=== PATIENT | male | born 1975 | race Caucasian/White ===

== ENCOUNTER 2016-10-10 18:21 | Emergency (ER) | payer MEDICAID ==
[~2016-10-10] VITALS: Ht 180.3 cm; Wt 80.0 kg
[~2016-10-10 18:21] MED LIST: AMOX1TAB61 PO; IPRA12.9 INH; NICO1PAT5 TD; TRAM50TA2 PO
[2016-10-10 18:29] VITALS: BP 137/73
[2016-10-10] MEDS ORDERED: CEFTRIAXONE 1,000 MG IM ONE (18:30)
[2016-10-10] MEDS ORDERED: SULFAMETH./TRIMETHOPRIM DS 800MG/160MG TABLET PO ONE (18:30)
[2016-10-10] MEDS ORDERED: KETOROLAC 30 MG/1 ML ONE (18:35)
[2016-10-10] MEDS ORDERED: CEFTRIAXONE 1,000 MG ONE (18:36)
[2016-10-10] MEDS ORDERED: LIDOCAINE 1%, 20ML ONE (18:36)
[2016-10-10] MEDS ORDERED: SULFAMETH./TRIMETHOPRIM DS 800MG/160MG TABLET ONE (18:36)
[2016-10-10] MEDS ORDERED: PLEASE ENTER HEIGHT AND WEIGHT MC SCH (19:00)
[2016-10-10] MEDS ORDERED: KETOROLAC 30 MG/1 ML IM ONE (19:00)
== END 2016-10-10 19:43 | disposition home or self-care (01) ==
LOC: ED 19:15
DX: K13.0 Diseases of lips (principal); E11.9 Type 2 diabetes mellitus without complications; J44.9 Chronic obstructive pulmonary disease, unspecified; F17.200 Nicotine dependence, unspecified, uncomplicated
CPT/HCPCS: 96372; 99284; J0696; J1885

== ENCOUNTER 2016-11-18 12:53 | Emergency (ER) | payer MEDICAID ==
[~2016-11-18] VITALS: Ht 180.3 cm; Wt 77.1 kg
[~2016-11-18 12:53] MED LIST changes: +AMOX1TAB64 PO; +LACT1CAP15 PO
[2016-11-18 12:54] VITALS: BP 130/76
== END 2016-11-18 16:20 | disposition home or self-care (01) ==
LOC: ED 14:05
DX: N49.2 Inflammatory disorders of scrotum (principal); E11.9 Type 2 diabetes mellitus without complications; J44.9 Chronic obstructive pulmonary disease, unspecified; F12.10 Cannabis abuse, uncomplicated
CPT/HCPCS: 76870; 81003; 99285

== ENCOUNTER 2016-12-06 22:20 | Emergency (ER) | payer MEDICAID ==
[2016-12-06] MEDS ORDERED: HYDROcodone/APAP 5/325 TABLET PO ONE (22:26)
[2016-12-06] MEDS ORDERED: HYDROcodone/APAP 5/325 TABLET ONE (22:29)
[2016-12-06] MEDS ORDERED: PLEASE ENTER HEIGHT AND WEIGHT MC SCH (23:00)
[2016-12-06 23:22] VITALS: BP 136/85
== END 2016-12-06 23:26 | disposition home or self-care (01) ==
LOC: ED 22:39
DX: S39.012A Strain of muscle, fascia and tendon of lower back, initial encounter (principal); E11.9 Type 2 diabetes mellitus without complications; J44.9 Chronic obstructive pulmonary disease, unspecified; F17.210 Nicotine dependence, cigarettes, uncomplicated; F15.10 Other stimulant abuse, uncomplicated; F12.10 Cannabis abuse, uncomplicated; X58.XXXA Exposure to other specified factors, initial encounter; Y93.89 Activity, other specified; Y99.8 Other external cause status; Y92.89 Other specified places as the place of occurrence of the external cause
CPT/HCPCS: 72110; 99284

== ENCOUNTER 2016-12-21 15:53 | Emergency (ER) | payer MEDICAID ==
[~2016-12-21] VITALS: Ht 180.3 cm; Wt 72.7 kg
[~2016-12-21 15:53] MED LIST changes: +NICO1PAT16 TD; -NICO1PAT5 TD
[2016-12-21 17:33] LABS: HEMATOCRIT 44.3 % (39.2-51.8); HEMOGLOBIN 14.5 g/dL (13.7-18.0); WHITE BLOOD COUNT 14.8 x10^3/uL (3.4-10)
[2016-12-21 17:41] LABS: BLOOD UREA NITROGEN 11 mg/dL (7-18)
[2016-12-21] MEDS ORDERED: LIDOCAINE 1%, 20ML ONE (19:50)
[2016-12-21] MEDS ORDERED: LIDOCAINE 1%, 20ML SQ ONE (20:00)
[2016-12-21 20:23] VITALS: BP 125/86
== END 2016-12-21 20:43 | disposition home or self-care (01) ==
LOC: ED 20:00
DX: L02.31 Cutaneous abscess of buttock (principal); E11.9 Type 2 diabetes mellitus without complications; J44.9 Chronic obstructive pulmonary disease, unspecified; Z91.030 Bee allergy status
CPT/HCPCS: 10060; 36415; 80048; 82040; 85025

== ENCOUNTER 2017-01-26 19:45 | Emergency (ER) | payer MEDICAID ==
[~2017-01-26] VITALS: Ht 180.3 cm; Wt 80.0 kg
[~2017-01-26 19:45] MED LIST changes: +NICO-487 TD; -NICO1PAT16 TD
[2017-01-26] MEDS ORDERED: DIPH,PERTUSS(ACELL),TET VAC/PF 0.5 ML IM-VACC ONE ×2 (20:00→20:07)
[2017-01-26] MEDS ORDERED: LIDOCAINE 1%, 20ML SQ ONE (20:00)
[2017-01-26] MEDS ORDERED: LIDOCAINE 1%, 20ML ONE (20:07)
[2017-01-26] MEDS ORDERED: HYDROcodone/APAP 5/325 TABLET ONE (20:21)
[2017-01-26] MEDS ORDERED: HYDROcodone/APAP 5/325 TABLET PO ONE (20:30)
[2017-01-26] MEDS ORDERED: SULFAMETH./TRIMETHOPRIM DS 800MG/160MG TABLET PO ONE (21:00)
[2017-01-26] MEDS ORDERED: SULFAMETH./TRIMETHOPRIM DS 800MG/160MG TABLET ONE (21:18)
[2017-01-26 21:43] VITALS: BP 137/84
== END 2017-01-26 21:45 | disposition home or self-care (01) ==
LOC: ED 20:45
DX: L02.214 Cutaneous abscess of groin (principal)
CPT/HCPCS: 46050; 90471; 90715

== ENCOUNTER 2017-01-28 21:48 | Inpatient (IN) | payer MEDICAID ==
[~2017-01-28] VITALS: Ht 180.3 cm; Wt 76.6 kg
[2017-01-28] MEDS ORDERED: KETOROLAC 30 MG/1 ML ONE (22:53)
[2017-01-28] MEDS ORDERED: ONDANSETRON 2MG/ML, 2ML ONE (22:53)
[2017-01-28] MEDS ORDERED: MORPHINE SULFATE 4 MG/ML, 1ML ONE (22:53)
[2017-01-28] MEDS ORDERED: KETOROLAC 30 MG/1 ML IVPush ONE (23:00)
[2017-01-28] MEDS ORDERED: ONDANSETRON 2MG/ML, 2ML IVPush ONE (23:00)
[2017-01-28] MEDS ORDERED: SODIUM CHLORIDE FLUSH 10ML SYR IVF ONE (23:00)
[2017-01-28] MEDS ORDERED: SODIUM CHLORIDE 0.9% 1,000ML IVBOLUS ONE (23:00)
[2017-01-28] MEDS ORDERED: MORPHINE SULFATE 4 MG/ML, 1ML IVPush PRN (23:00)
[2017-01-28 23:01] LABS: HEMATOCRIT 45.3 % (39.2-51.8); HEMOGLOBIN 15.1 g/dL (13.7-18.0); WHITE BLOOD COUNT 11.9 x10^3/uL (3.4-10)
[2017-01-28 23:21] LABS: ASPARTATE AMINO TRANSFERASE 25 U/L (15-37); BLOOD UREA NITROGEN 14 mg/dL (7-18)
[2017-01-29] MEDS ORDERED: OMNIPAQUE 350 MG/ML, 100ML BOTTLE ONE (00:42)
[2017-01-29] MEDS ORDERED: AMPICILLIN/SULBACTAM 3 GM in SODIUM CHLORIDE 0.9% 100 ML IV ONE (01:30)
[2017-01-29] MEDS ORDERED: OXYcodone/APAP 5/325MG TABLET PO ONE (01:30)
[2017-01-29] MEDS ORDERED: OXYcodone/APAP 5/325MG TABLET ONE (01:56)
[2017-01-29] MEDS ORDERED: POLYETHYLENE GLYCOL 17 GM PACKET PO PRN (02:30)
[2017-01-29] MEDS ORDERED: ONDANSETRON 2MG/ML, 2ML IVPush PRN (02:30)
[2017-01-29] MEDS ORDERED: morphine SULFATE 10 MG/ML, 1ML IVPush PRN (02:30)
[2017-01-29] MEDS ORDERED: BISACODYL 10 MG SUPP PR PRN (02:30)
[2017-01-29] MEDS ORDERED: ACETAMINOPHEN 325 MG TABLET PO PRN (02:30)
[2017-01-29] MEDS ORDERED: hydrALAzine 20 MG/ML, 1ML IVPush PRN (02:30)
[2017-01-29] MEDS ORDERED: ENALAPRILAT 1.25 MG/ML, 2ML IVPush PRN (02:30)
[2017-01-29] MEDS ORDERED: VANCOMYCIN PER PHARMACY MC PRN (03:00)
[2017-01-29] MEDS ORDERED: VANCOMYCIN PMX 1GM/200ML 200 ML IV ONE (03:00)
[2017-01-29 03:36] VITALS: BP 103/67
[2017-01-29] MEDS: NICOTINE 14MG/24 HR PATCH.TD24 TD SCH (03:54)
[2017-01-29] MEDS: PIPERACILLIN/TAZO/PMX 3.375GM 50 ML IV SCH ×4 (03:54→21:50)
[2017-01-29] MEDS: SODIUM CHLORIDE 0.9% 1,000 ML IV SCH ×3 (03:56→14:42)
[2017-01-29] MEDS ORDERED: PHARMACOKINETIC CONSULTATION MC ONE (04:00)
[2017-01-29] MEDS ORDERED: PHARMACOKINETIC MONITORING MC PRN (04:00)
[2017-01-29] MEDS: VANCOMYCIN 1,500 MG in SODIUM CHLORIDE 0.9% 250 ML IV SCH ×2 (05:07→17:10)
[2017-01-29 07:16] VITALS: BP 103/67
[2017-01-29] MEDS: OXYcodone IR 5MG TABLET PO PRN ×4 (08:01→21:50)
[2017-01-29] MEDS: SENNA/DOCUSATE TABLET PO SCH (08:01)
[2017-01-29 12:38] VITALS: BP 107/68
[2017-01-29 18:31] VITALS: BP 107/70
[2017-01-30] MEDS: PIPERACILLIN/TAZO/PMX 3.375GM 50 ML IV SCH ×4 (04:00→22:22)
[2017-01-30] MEDS: NICOTINE 14MG/24 HR PATCH.TD24 TD SCH (04:00)
[2017-01-30] MEDS: OXYcodone IR 5MG TABLET PO PRN ×5 (04:00→22:22)
[2017-01-30 04:37] LABS: HEMATOCRIT 40.5 % (39.2-51.8); HEMOGLOBIN 13.4 g/dL (13.7-18.0); WHITE BLOOD COUNT 5.6 x10^3/uL (3.4-10)
[2017-01-30 04:39] LABS: ASPARTATE AMINO TRANSFERASE 25 U/L (15-37); BLOOD UREA NITROGEN 12 mg/dL (7-18)
[2017-01-30] MEDS: VANCOMYCIN 1,500 MG in SODIUM CHLORIDE 0.9% 250 ML IV SCH ×2 (05:18→17:06)
[2017-01-30 06:45] VITALS: BP 102/68
[2017-01-30] MEDS: SENNA/DOCUSATE TABLET PO SCH (08:06)
[2017-01-30 12:44] VITALS: BP 113/72
[2017-01-30 19:53] VITALS: BP 122/66
[2017-01-31 00:59] VITALS: BP 111/72
[2017-01-31] MEDS: OXYcodone IR 5MG TABLET PO PRN ×3 (04:07→13:56)
[2017-01-31] MEDS: NICOTINE 14MG/24 HR PATCH.TD24 TD SCH (04:07)
[2017-01-31] MEDS: PIPERACILLIN/TAZO/PMX 3.375GM 50 ML IV SCH ×2 (04:07→09:49)
[2017-01-31 04:57] LABS: HEMOGLOBIN 15.1 g/dL (13.7-18.0)
[2017-01-31 05:04] LABS: BLOOD UREA NITROGEN 12 mg/dL (7-18)
[2017-01-31 05:10] LABS: ASPARTATE AMINO TRANSFERASE 34 U/L (15-37)
[2017-01-31 08:55] VITALS: BP 118/80
[2017-01-31] MEDS: SENNA/DOCUSATE TABLET PO SCH (09:48)
[2017-01-31] MEDS ORDERED: VANCOMYCIN 1,500 MG in SODIUM CHLORIDE 0.9% 250 ML IV SCH (12:00)
== END 2017-01-31 16:02 | disposition left against medical advice (07) | DRG 872 ==
LOC: ED 23:00 → EDIP 01-29 01:18 → 3NW 01-29 03:31
PROVIDERS: ADMIT Internal Medicine; ATTEND Internal Medicine
DX: A41.9 Sepsis, unspecified organism (principal); E44.0 Moderate protein-calorie malnutrition; L02.214 Cutaneous abscess of groin; L02.215 Cutaneous abscess of perineum; L03.315 Cellulitis of perineum; Z53.21 Procedure and treatment not carried out due to patient leaving prior to being seen by health care provider; F17.210 Nicotine dependence, cigarettes, uncomplicated; B18.2 Chronic viral hepatitis C; Z68.23 Body mass index [BMI] 23.0-23.9, adult; Z82.49 Family history of ischemic heart disease and other diseases of the circulatory system; Z83.3 Family history of diabetes mellitus
CPT/HCPCS: 36415; 72193; 80053; 80061; 80202; 83036; 83735; 84439; 84443; 85025; 87040; 87070; 87077; 87186; 87205; 96361; 96374; 96375; J0295; J1885; J2405; J2543; J3370; Q9967; J2270; J7030; J7050

== ENCOUNTER 2017-04-04 22:36 | Emergency (ER) | payer MEDICAID ==
[~2017-04-04] VITALS: Ht 180.3 cm; Wt 79.2 kg
[2017-04-04] MEDS ORDERED: SULFAMETH./TRIMETHOPRIM DS 800MG/160MG TABLET ONE (23:21)
[2017-04-04] MEDS ORDERED: CEPHALEXIN 500 MG CAPSULE ONE (23:21)
[2017-04-04] MEDS ORDERED: CEPHALEXIN 250 MG/5 ML, ORAL SUSP PO ONE (23:30)
[2017-04-04] MEDS ORDERED: CEPHALEXIN 500 MG CAPSULE PO ONE (23:30)
[2017-04-04] MEDS ORDERED: SULFAMETH./TRIMETHOPRIM DS 800MG/160MG TABLET PO ONE (23:30)
[2017-04-05 00:40] VITALS: BP 138/95
== END 2017-04-05 00:42 | disposition home or self-care (01) ==
LOC: ED 23:29
DX: L03.116 Cellulitis of left lower limb (principal); K43.9 Ventral hernia without obstruction or gangrene; J44.9 Chronic obstructive pulmonary disease, unspecified; E11.9 Type 2 diabetes mellitus without complications; F17.200 Nicotine dependence, unspecified, uncomplicated
CPT/HCPCS: 99284

== ENCOUNTER 2017-04-10 13:43 | Inpatient (IN) | payer MEDICAID ==
[~2017-04-10] VITALS: Ht 180.3 cm; Wt 87.1 kg
[2017-04-10] MEDS ORDERED: ACETAMINOPHEN 500 MG TABLET ONE (14:20)
[2017-04-10] MEDS ORDERED: ACETAMINOPHEN 325 MG TABLET PO ONE (14:30)
[2017-04-10] MEDS ORDERED: SODIUM CHLORIDE 0.9% 1,000ML IVBOLUS ONE ×3 (14:30→20:00)
[2017-04-10 14:38] LABS: HEMATOCRIT 47.7 % (39.2-51.8); HEMOGLOBIN 15.9 g/dL (13.7-18.0); WHITE BLOOD COUNT 9.3 x10^3/uL (3.4-10)
[2017-04-10 14:38] LABS: RAPID INFLUENZA A Negative (Negative); RAPID INFLUENZA B Negative (Negative)
[2017-04-10 14:53] LABS: ASPARTATE AMINO TRANSFERASE 52 U/L (15-37); BLOOD UREA NITROGEN 18 mg/dL (7-18)
[2017-04-10 15:02] LABS: DIFF TOTAL CELLS COUNTED 100 CELL DIFF
[2017-04-10 15:05] LABS: VERIFY COUNTS? YES
[2017-04-10 15:47] LABS: DAU SCREEN DISCLAIMER
[2017-04-10] MEDS ORDERED: MORPHINE SULFATE 4 MG/ML, 1ML ONE (15:51)
[2017-04-10] MEDS ORDERED: ONDANSETRON 2MG/ML, 2ML ONE (15:51)
[2017-04-10] MEDS ORDERED: VANCOMYCIN 1,500 MG in SODIUM CHLORIDE 0.9% 250 ML IV ONE (16:00)
[2017-04-10] MEDS ORDERED: PHARMACOKINETIC CONSULTATION MC ONE ×2 (16:00→22:00)
[2017-04-10] MEDS ORDERED: MORPHINE SULFATE 4 MG/ML, 1ML IVPush PRN (16:00)
[2017-04-10] MEDS ORDERED: ONDANSETRON 2MG/ML, 2ML IVPush ONE (16:00)
[2017-04-10] MEDS ORDERED: PIPERACILLIN/TAZO/PMX 4.5GM 100 ML IVPB ONE (16:00)
[2017-04-10] MEDS ORDERED: VANCOMYCIN PER PHARMACY MC ONE (16:00)
[2017-04-10] MEDS ORDERED: OMNIPAQUE 350 MG/ML, 100ML BOTTLE ONE (16:23)
[2017-04-10] MEDS ORDERED: SODIUM CHLORIDE 0.9% 1,000 ML IV ONE (18:47)
[2017-04-10] MEDS ORDERED: SODIUM CHLORIDE FLUSH 10ML SYR IVF PRN (19:00)
[2017-04-10] MEDS ORDERED: LABETALOL 5MG/ML, 20ML IVPush PRN (20:00)
[2017-04-10] MEDS ORDERED: PHARMACY MAY ADJ FOR RENAL FX MC PRN (20:00)
[2017-04-10] MEDS ORDERED: ONDANSETRON ODT 4 MG PO PRN (20:00)
[2017-04-10] MEDS ORDERED: VANCOMYCIN PER PHARMACY MC PRN (20:00)
[2017-04-10] MEDS ORDERED: TEMAZEPAM 15 MG CAPSULE PO PRN (20:00)
[2017-04-10] MEDS ORDERED: ACETAMINOPHEN 325 MG TABLET PO PRN (20:00)
[2017-04-10] MEDS ORDERED: DOCUSATE 100 MG CAPSULE PO PRN (20:00)
[2017-04-10] MEDS ORDERED: PHARMACOKINETIC MONITORING MC PRN (22:00)
[2017-04-10 22:23] VITALS: BP 84/53
[2017-04-10] MEDS: SODIUM CHLORIDE 0.9% 1,000 ML IV SCH ×2 (22:47→22:55)
[2017-04-10] MEDS: NICOTINE 21 MG/24 HR PATCH.TD24 TD SCH (22:54)
[2017-04-10] MEDS: HEPARIN 5,000 UNITS/ML, 1ML SQ SCH (22:55)
[2017-04-10] MEDS: PIPERACILLIN/TAZO/PMX 4.5GM 100 ML IV SCH (22:55)
[2017-04-11 02:14] VITALS: BP 96/58
[2017-04-11] MEDS: VANCOMYCIN 1,500 MG in SODIUM CHLORIDE 0.9% 250 ML IV SCH ×2 (04:17→16:37)
[2017-04-11] MEDS: SODIUM CHLORIDE 0.9% 1,000 ML IV SCH ×3 (05:12→21:17)
[2017-04-11 05:57] LABS: HEMATOCRIT 43.8 % (39.2-51.8); HEMOGLOBIN 14.4 g/dL (13.7-18.0); WHITE BLOOD COUNT 20.2 x10^3/uL (3.4-10)
[2017-04-11 05:59] LABS: BLOOD UREA NITROGEN 20 mg/dL (7-18)
[2017-04-11] MEDS: HEPARIN 5,000 UNITS/ML, 1ML SQ SCH ×3 (06:00→23:57)
[2017-04-11] MEDS: PIPERACILLIN/TAZO/PMX 4.5GM 100 ML IV SCH ×4 (06:00→23:56)
[2017-04-11 06:10] LABS: DIFF TOTAL CELLS COUNTED 100 CELL DIFF
[2017-04-11 06:16] LABS: VERIFY COUNTS? YES
[2017-04-11 06:20] LABS: LARGE PLATELETS 1+
[2017-04-11 06:50] VITALS: BP 94/64
[2017-04-11] MEDS: KETOROLAC 30 MG/1 ML IVPush PRN ×2 (09:48→17:28)
[2017-04-11] MEDS ORDERED: SODIUM CHLORIDE 0.9% 1,000ML IVBOLUS ONE (10:00)
[2017-04-11 12:57] VITALS: BP 98/60
[2017-04-11 20:00] VITALS: BP 102/62
[2017-04-11] MEDS: NICOTINE 21 MG/24 HR PATCH.TD24 TD SCH (23:57)
[2017-04-12] MEDS: KETOROLAC 30 MG/1 ML IVPush PRN ×2 (00:03→17:49)
[2017-04-12 02:00] VITALS: BP 108/65
[2017-04-12] MEDS: VANCOMYCIN 1,500 MG in SODIUM CHLORIDE 0.9% 250 ML IV SCH ×2 (04:27→16:35)
[2017-04-12 05:56] LABS: HEMATOCRIT 40.4 % (39.2-51.8); HEMOGLOBIN 13.5 g/dL (13.7-18.0); WHITE BLOOD COUNT 9.7 x10^3/uL (3.4-10)
[2017-04-12 06:08] LABS: BLOOD UREA NITROGEN 17 mg/dL (7-18)
[2017-04-12 06:13] LABS: DIFF TOTAL CELLS COUNTED 100 CELL DIFF
[2017-04-12 06:14] LABS: VERIFY COUNTS? YES
[2017-04-12] MEDS: PIPERACILLIN/TAZO/PMX 4.5GM 100 ML IV SCH ×3 (06:34→21:18)
[2017-04-12 08:31] VITALS: BP 111/72
[2017-04-12] MEDS: POTASSIUM CHLORIDE 20 MEQ TAB.ER.PRT PO SCH ×2 (09:22→16:34)
[2017-04-12] MEDS: HEPARIN 5,000 UNITS/ML, 1ML SQ SCH ×2 (09:22→16:35)
[2017-04-12] MEDS: SODIUM CHLORIDE 0.9% 1,000 ML IV SCH (09:22)
[2017-04-12 13:52] VITALS: BP 119/79
[2017-04-12 20:00] VITALS: BP 121/82
[2017-04-13] MEDS: NICOTINE 21 MG/24 HR PATCH.TD24 TD SCH (00:03)
[2017-04-13] MEDS: HEPARIN 5,000 UNITS/ML, 1ML SQ SCH ×2 (00:04→08:16)
[2017-04-13 02:00] VITALS: BP 131/85
[2017-04-13] MEDS: PIPERACILLIN/TAZO/PMX 4.5GM 100 ML IV SCH ×2 (03:41→08:17)
[2017-04-13] MEDS: KETOROLAC 30 MG/1 ML IVPush PRN (03:45)
[2017-04-13] MEDS: VANCOMYCIN 1,500 MG in SODIUM CHLORIDE 0.9% 250 ML IV SCH (04:56)
[2017-04-13 05:54] LABS: HEMATOCRIT 41.3 % (39.2-51.8); HEMOGLOBIN 13.6 g/dL (13.7-18.0); WHITE BLOOD COUNT 8.8 x10^3/uL (3.4-10)
[2017-04-13 06:06] LABS: ASPARTATE AMINO TRANSFERASE 32 U/L (15-37); BLOOD UREA NITROGEN 13 mg/dL (7-18)
[2017-04-13 07:13] VITALS: BP 127/78
[2017-04-13] MEDS: POTASSIUM CHLORIDE 20 MEQ TAB.ER.PRT PO SCH (08:16)
[2017-04-13] MEDS ORDERED: DOXY100T PO (09:24)
[2017-04-13] MEDS ORDERED: CEFD300C37 PO (09:24)
== END 2017-04-13 11:57 | disposition home or self-care (01) | DRG 871 ==
LOC: ED 15:35 → EDIP 18:48 → 4EST 21:35 → DCLOUNGE 04-13 11:40
PROVIDERS: ADMIT Surgery; ATTEND Surgery
DX: A41.9 Sepsis, unspecified organism (principal); N17.0 Acute kidney failure with tubular necrosis; R65.21 Severe sepsis with septic shock; R18.8 Other ascites; E11.9 Type 2 diabetes mellitus without complications; F15.10 Other stimulant abuse, uncomplicated; F17.210 Nicotine dependence, cigarettes, uncomplicated; J44.9 Chronic obstructive pulmonary disease, unspecified; K43.9 Ventral hernia without obstruction or gangrene; K76.9 Liver disease, unspecified; Z82.49 Family history of ischemic heart disease and other diseases of the circulatory system; Z83.3 Family history of diabetes mellitus; Z71.6 Tobacco abuse counseling
CPT/HCPCS: 36415; 71010; 74177; 80048; 80053; 80202; 80307; 81001; 83605; 83690; 84145; 85025; 87040; 87070; 87205; 87400; 93005; 93306; 96361; 96365; 96366; 96375; J1644; J1885; J2405; J2543; J3370; Q0162; Q9967; G0479; J7030; J7050

== ENCOUNTER 2017-04-19 23:05 | Emergency (ER) | payer MEDICAID ==
[~2017-04-19] VITALS: Ht 180.3 cm; Wt 75.0 kg
[~2017-04-19 23:05] MED LIST changes: +CEFD300C37 PO; +DOXY100T PO
[2017-04-20 00:06] VITALS: BP 129/69
== END 2017-04-20 01:02 | disposition home or self-care (01) ==
LOC: ED 04-20 00:56
DX: T78.1XXA Other adverse food reactions, not elsewhere classified, initial encounter (principal); E11.9 Type 2 diabetes mellitus without complications; J44.9 Chronic obstructive pulmonary disease, unspecified; X58.XXXA Exposure to other specified factors, initial encounter
CPT/HCPCS: 93005; 99283

== ENCOUNTER 2017-08-10 18:47 | Emergency (ER) | payer MEDICAID ==
[~2017-08-10] VITALS: Ht 180.3 cm; Wt 75.0 kg
[2017-08-10 19:30] LABS: BASOPHILS # (AUTO) 0.03 x10^3/uL (0-0.1); BASOPHILS % (AUTO) 0 % (0-1); EOSINOPHILS # (AUTO) 0.12 x10^3/uL (0-0.4); EOSINOPHILS % (AUTO) 1 % (1-7); LYMPHOCYTES # (AUTO) 2.55 x10^3/uL (1-3.4); LYMPHOCYTES % (AUTO) 18 % (22-44); MD NO; MEAN CORPUSCULAR HEMOGLOBIN 29.3 pg (27.5-34.5); MEAN CORPUSCULAR HGB CONC 33.1 g/dL (33.2-36.2); MEAN CORPUSCULAR VOLUME 88.6 fL (81-97); MEAN PLATELET VOLUME 7.8 fL (7.4-10.4); MONOCYTES # (AUTO) 0.98 x10^3/uL (0.2-0.8); MONOCYTES % (AUTO) 7 % (2-9); NEUTROPHILS # (AUTO) 10.24 x10^3/uL (1.8-6.8); NEUTROPHILS % (AUTO) 74 % (42-75); PLATELET COUNT 251 x10^3/uL (130-400); RED BLOOD COUNT 5.41 x10^6/uL (4.38-5.82); RED CELL DISTRIBUTION WIDTH 14.9 % (9.4-14.8)
[2017-08-10] MEDS ORDERED: SODIUM CHLORIDE FLUSH 10ML SYR IVF ONE (19:30)
[2017-08-10 19:42] LABS: ALBUMIN 3.7 g/dL (3.4-5.0); ANION GAP 6 mmol/L (5-15); CALCIUM 8.8 mg/dL (8.5-10.1); CHLORIDE 107 mmol/L (98-107); CREATININE 1.01 mg/dL (0.7-1.3)
[2017-08-10] MEDS ORDERED: MORPHINE SULFATE 4 MG/ML, 1ML ONE ×2 (19:43→20:20)
[2017-08-10] MEDS: MORPHINE SULFATE 4 MG/ML, 1ML IVPush PRN ×2 (19:45→20:29)
[2017-08-10] MEDS ORDERED: LORazepam 2 MG/ML, 1ML IVPush ONE (20:30)
[2017-08-10] MEDS ORDERED: LORazepam 2 MG/ML, 1ML ONE (20:30)
[2017-08-10 20:40] LABS: CULTURE INDICATED? YES; MICROSCOPIC INDICATED
[2017-08-10 20:42] LABS: AMPHETAMINE SCREEN, URINE Positive (Negative); BARBITURATE SCREEN, URINE Negative (Negative); BENZODIAZEPINE SCREEN, URINE Negative (Negative); CANNABINOID SCREEN, URINE Positive (Negative); COCAINE SCREEN, URINE Negative (Negative); METHADONE SCREEN, URINE Negative (Negative); OPIATE SCREEN, URINE Positive (Negative)
[2017-08-10 20:50] LABS: ALANINE AMINOTRANSFERASE 73 U/L (12-78); ALBUMIN 3.7 g/dL (3.4-5.0)
[2017-08-10 20:52] LABS: ALKALINE PHOSPHATASE 72 U/L (45-117); BILIRUBIN, DIRECT < 0.1 mg/dL (0.1-0.2); BILIRUBIN,INDIRECT 0.1 mg/dL (0.0-2.0); BILIRUBIN,TOTAL 0.2 mg/dL (0.2-1.0)
[2017-08-10] MEDS ORDERED: KETOROLAC 30 MG/1 ML IVPush ONE (21:00)
[2017-08-10] MEDS ORDERED: KETOROLAC 30 MG/1 ML ONE (21:03)
[2017-08-10 21:08] VITALS: BP 127/81
== END 2017-08-10 21:55 | disposition home or self-care (01) ==
LOC: ED 21:20
DX: N45.1 Epididymitis (principal); E11.9 Type 2 diabetes mellitus without complications; J44.9 Chronic obstructive pulmonary disease, unspecified; F17.200 Nicotine dependence, unspecified, uncomplicated; R56.9 Unspecified convulsions
CPT/HCPCS: 36415; 70450; 76870; 80048; 80076; 80307; 81001; 82040; 85025; 87077; 87086; 93005; 96374; 96375; 96376; 99285; J1885; 87186

== ENCOUNTER 2017-08-13 17:56 | Emergency (ER) | payer MEDICAID ==
[~2017-08-13] VITALS: Ht 180.3 cm; Wt 80.0 kg
[2017-08-13] MEDS ORDERED: methylPREDNISolone SOD SUCC 125 MG/2 ML ONE (18:19)
[2017-08-13] MEDS ORDERED: FAMOTIDINE 20 MG/2 ML ONE (18:19)
[2017-08-13] MEDS ORDERED: SODIUM CHLORIDE FLUSH 10ML SYR IVF ONE (18:30)
[2017-08-13] MEDS ORDERED: methylPREDNISolone SOD SUCC 125 MG/2 ML IVPush ONE (18:30)
[2017-08-13] MEDS ORDERED: SODIUM CHLORIDE 0.9% 1,000ML IVBOLUS ONE (18:30)
[2017-08-13] MEDS ORDERED: FAMOTIDINE 20 MG/2 ML IVPush ONE (18:30)
[2017-08-13 20:06] VITALS: BP 123/83
== END 2017-08-13 20:13 | disposition home or self-care (01) ==
LOC: ED 19:45
DX: T78.03XA Anaphylactic reaction due to other fish, initial encounter (principal); E11.9 Type 2 diabetes mellitus without complications; J44.9 Chronic obstructive pulmonary disease, unspecified; E87.6 Hypokalemia; Y92.9 Unspecified place or not applicable
CPT/HCPCS: 96361; 96374; 96375; 99291; J2930; J7030; S0028

== ENCOUNTER 2017-09-17 19:56 | Emergency (ER) | payer MEDICAID ==
[~2017-09-17] VITALS: Ht 180.3 cm; Wt 81.6 kg
[2017-09-17] MEDS ORDERED: KETOROLAC 30 MG/1 ML ONE (20:17)
[2017-09-17] MEDS ORDERED: DIPH,PERTUSS(ACELL),TET VAC/PF 0.5 ML IM-VACC ONE ×2 (20:18→20:30)
[2017-09-17] MEDS ORDERED: ALBU18HF INH (20:27)
[2017-09-17] MEDS ORDERED: KETOROLAC 30 MG/1 ML IM ONE (20:30)
[2017-09-17] MEDS ORDERED: HYDROcodone/APAP 5/325 TABLET ONE (20:48)
[2017-09-17 20:58] VITALS: BP 144/96
[2017-09-17] MEDS ORDERED: HYDROcodone/APAP 5/325 TABLET PO ONE (21:00)
== END 2017-09-17 21:29 | disposition home or self-care (01) ==
LOC: ED 21:00
DX: S42.022A Displaced fracture of shaft of left clavicle, initial encounter for closed fracture (principal); S16.1XXA Strain of muscle, fascia and tendon at neck level, initial encounter; S50.312A Abrasion of left elbow, initial encounter; J44.9 Chronic obstructive pulmonary disease, unspecified; E11.9 Type 2 diabetes mellitus without complications; V19.9XXA Pedal cyclist (driver) (passenger) injured in unspecified traffic accident, initial encounter; Y93.55 Activity, bike riding; Y99.8 Other external cause status; Y92.89 Other specified places as the place of occurrence of the external cause
CPT/HCPCS: 29105; 72050; 73030; 90471; 90715; 96372; 99284; J1885

== ENCOUNTER 2017-09-23 08:43 | Inpatient (IN) | payer MEDICAID ==
[~2017-09-23] VITALS: Ht 180.3 cm; Wt 79.9 kg
[~2017-09-23 08:43] MED LIST changes: +ALBU18HF INH
[2017-09-23] MEDS ORDERED: AMPICILLIN/SULBACTAM 3 GM in SODIUM CHLORIDE 0.9% 100 ML IVPB ONE (09:30)
[2017-09-23] MEDS ORDERED: SODIUM CHLORIDE FLUSH 10ML SYR IVF ONE (09:30)
[2017-09-23 09:40] LABS: BASOPHILS # (AUTO) 0.03 x10^3/uL (0-0.1); BASOPHILS % (AUTO) 0 % (0-1); EOSINOPHILS % (AUTO) 2 % (1-7); LYMPHOCYTES % (AUTO) 27 % (22-44); MD NO; MEAN CORPUSCULAR HEMOGLOBIN 29.5 pg (27.5-34.5); MEAN CORPUSCULAR HGB CONC 33.7 g/dL (33.2-36.2); MEAN CORPUSCULAR VOLUME 87.6 fL (81-97); MEAN PLATELET VOLUME 7.6 fL (7.4-10.4); MONOCYTES # (AUTO) 0.88 x10^3/uL (0.2-0.8); MONOCYTES % (AUTO) 10 % (2-9); NEUTROPHILS # (AUTO) 5.56 x10^3/uL (1.8-6.8); NEUTROPHILS % (AUTO) 61 % (42-75); PLATELET COUNT 228 x10^3/uL (130-400); RED BLOOD COUNT 5.09 x10^6/uL (4.38-5.82); RED CELL DISTRIBUTION WIDTH 14.4 % (9.4-14.8)
[2017-09-23] MEDS ORDERED: MORPHINE SULFATE 4 MG/ML, 1ML ONE ×3 (09:46→21:00)
[2017-09-23] MEDS ORDERED: ONDANSETRON ODT 4 MG ONE (09:46)
[2017-09-23 09:54] LABS: ANION GAP 7 mmol/L (5-15); CALCIUM 8.7 mg/dL (8.5-10.1); CHLORIDE 108 mmol/L (98-107); CREATININE 0.92 mg/dL (0.7-1.3)
[2017-09-23 09:55] LABS: ALBUMIN 3.3 g/dL (3.4-5.0)
[2017-09-23] MEDS: MORPHINE SULFATE 4 MG/ML, 1ML IVPush PRN ×2 (10:00→12:16)
[2017-09-23] MEDS ORDERED: ONDANSETRON ODT 4 MG PO ONE (10:00)
[2017-09-23] MEDS ORDERED: SODIUM CHLORIDE FLUSH 10ML SYR IVF PRN (12:00)
[2017-09-23 12:57] VITALS: BP 150/86
[2017-09-23] MEDS ORDERED: HYDROcodone/APAP 5/325 TABLET PO PRN (13:30)
[2017-09-23] MEDS ORDERED: DOCUSATE 100 MG CAPSULE PO PRN (13:30)
[2017-09-23] MEDS ORDERED: ONDANSETRON 2MG/ML, 2ML IVPush PRN (13:30)
[2017-09-23] MEDS ORDERED: ACETAMINOPHEN 325 MG TABLET PO PRN (13:30)
[2017-09-23] MEDS ORDERED: hydrALAzine 20 MG/ML, 1ML IVPush PRN (13:30)
[2017-09-23] MEDS ORDERED: ALBUTEROL SULFATE 2.5 MG/3 ML NPPB PRN (14:00)
[2017-09-23] MEDS: NICOTINE 14MG/24 HR PATCH.TD24 TD SCH (14:18)
[2017-09-23] MEDS: D5%-0.45% NACL 1,000 ML IV SCH (14:18)
[2017-09-23] MEDS: morphine SULFATE 10 MG/ML, 1ML IVPush PRN ×2 (14:27→21:02)
[2017-09-23] MEDS: AMPICILLIN/SULBACTAM 3 GM in SODIUM CHLORIDE 0.9% 100 ML IV SCH ×2 (15:18→20:53)
[2017-09-23 17:25] VITALS: BP 150/86
[2017-09-23] MEDS: OXYcodone IR 5MG TABLET PO PRN (18:18)
[2017-09-23 20:00] VITALS: BP 140/92
[2017-09-23] MEDS ORDERED: ALBUTEROL SULFATE 2.5 MG/3 ML NPPB SCH (21:00)
[2017-09-24 02:00] VITALS: BP 137/86
[2017-09-24] MEDS: AMPICILLIN/SULBACTAM 3 GM in SODIUM CHLORIDE 0.9% 100 ML IV SCH ×4 (03:03→21:34)
[2017-09-24] MEDS: D5%-0.45% NACL 1,000 ML IV SCH (03:03)
[2017-09-24 04:55] LABS: BASOPHILS # (AUTO) 0.05 x10^3/uL (0-0.1); BASOPHILS % (AUTO) 0 % (0-1); EOSINOPHILS # (AUTO) 0.23 x10^3/uL (0-0.4); EOSINOPHILS % (AUTO) 2 % (1-7); LYMPHOCYTES # (AUTO) 2.17 x10^3/uL (1-3.4); LYMPHOCYTES % (AUTO) 20 % (22-44); MD NO; MEAN CORPUSCULAR HEMOGLOBIN 29.6 pg (27.5-34.5); MEAN CORPUSCULAR HGB CONC 33.1 g/dL (33.2-36.2); MEAN CORPUSCULAR VOLUME 89.4 fL (81-97); MEAN PLATELET VOLUME 7.8 fL (7.4-10.4); MONOCYTES # (AUTO) 0.96 x10^3/uL (0.2-0.8); MONOCYTES % (AUTO) 9 % (2-9); NEUTROPHILS # (AUTO) 7.61 x10^3/uL (1.8-6.8); NEUTROPHILS % (AUTO) 69 % (42-75); PLATELET COUNT 198 x10^3/uL (130-400); RED CELL DISTRIBUTION WIDTH 14.4 % (9.4-14.8)
[2017-09-24 05:04] LABS: ANION GAP 5 mmol/L (5-15); CHLORIDE 101 mmol/L (98-107); CREATININE 0.97 mg/dL (0.7-1.3)
[2017-09-24] MEDS ORDERED: MORPHINE SULFATE 4 MG/ML, 1ML ONE (06:41)
[2017-09-24] MEDS: morphine SULFATE 10 MG/ML, 1ML IVPush PRN ×5 (06:43→21:34)
[2017-09-24 06:47] VITALS: BP 166/97
[2017-09-24] MEDS ORDERED: MAGNESIUM SULFATE PMX 2GM/50ML 50 ML IV ONE (10:00)
[2017-09-24] MEDS ORDERED: FENTANYL PF 100 MCG/2ML ONE ×3 (11:57→12:57)
[2017-09-24] MEDS ORDERED: MIDAZOLAM 1 MG/ML, 2ML ONE ×2 (11:58→12:24)
[2017-09-24] MEDS ORDERED: BUPIVACAINE/PF 0.5% INFIL ONE (12:19)
[2017-09-24] MEDS ORDERED: PROPOFOL 10 MG/ML, 20ML ONE (12:25)
[2017-09-24] MEDS ORDERED: WATER-INJECTION,STERILE 10 ML IV ONE (12:25)
[2017-09-24] MEDS ORDERED: CEFAZOLIN 1,000 MG ONE ×2 (12:25)
[2017-09-24] MEDS ORDERED: MORPHINE SULFATE 4 MG/ML, 1ML IVPush PRN (12:30)
[2017-09-24] MEDS ORDERED: ALBUTEROL SULFATE 2.5 MG/3 ML NPPB PRN (12:30)
[2017-09-24] MEDS ORDERED: ACETAMINOPHEN 325 MG TABLET PO PRN (12:30)
[2017-09-24] MEDS ORDERED: PROMETHAZINE 25 MG/ML, 1ML IV PRN (12:30)
[2017-09-24] MEDS ORDERED: ONDANSETRON ODT 8 MG PO PRN (12:30)
[2017-09-24] MEDS ORDERED: KETOROLAC 30 MG/1 ML IV PRN (12:30)
[2017-09-24] MEDS ORDERED: OXYcodone 5 MG/5 ML ORAL.SOL UDC PO PRN (12:30)
[2017-09-24] MEDS ORDERED: FENTANYL PF 100 MCG/2ML IV PRN (12:30)
[2017-09-24] MEDS ORDERED: MEPERIDINE/PF 25MG/0.5ML IVPush PRN (12:30)
[2017-09-24] MEDS ORDERED: OXYcodone 5 MG/5 ML ORAL.SOL UDC ONE (12:57)
[2017-09-24] MEDS ORDERED: ACETAMINOPHEN 650 MG/20.3 ML UDC ONE (12:57)
[2017-09-24] MEDS: NICOTINE 14MG/24 HR PATCH.TD24 TD SCH (13:49)
[2017-09-24 20:00] VITALS: BP 134/91
[2017-09-24] MEDS: OXYcodone IR 5MG TABLET PO PRN (20:12)
[2017-09-25 01:34] VITALS: BP 138/87
[2017-09-25] MEDS: AMPICILLIN/SULBACTAM 3 GM in SODIUM CHLORIDE 0.9% 100 ML IV SCH ×2 (02:43→09:17)
[2017-09-25] MEDS: OXYcodone IR 5MG TABLET PO PRN ×2 (03:44→09:17)
[2017-09-25] MEDS: morphine SULFATE 10 MG/ML, 1ML IVPush PRN (05:25)
[2017-09-25 06:52] VITALS: BP 159/95
== END 2017-09-25 10:21 | disposition left against medical advice (07) | DRG 580 ==
LOC: ED 10:08 → EDIP 11:40 → 3NW 12:47
PROVIDERS: ADMIT Internal Medicine Pulmonary Disease; ATTEND Internal Medicine Pulmonary Disease
PROC: 0J9J0ZZ Drainage of Right Hand Subcutaneous Tissue and Fascia, Open Approach (ICD-10-PCS; principal; 2017-09-24 13:30)
DX: L03.011 Cellulitis of right finger (principal); L03.123 Acute lymphangitis of right upper limb; F12.90 Cannabis use, unspecified, uncomplicated; L02.511 Cutaneous abscess of right hand; S42.002A Fracture of unspecified part of left clavicle, initial encounter for closed fracture; J44.9 Chronic obstructive pulmonary disease, unspecified; F15.10 Other stimulant abuse, uncomplicated; X58.XXXA Exposure to other specified factors, initial encounter; Y93.89 Activity, other specified; Y92.89 Other specified places as the place of occurrence of the external cause; Y99.8 Other external cause status; Z83.3 Family history of diabetes mellitus; Z82.49 Family history of ischemic heart disease and other diseases of the circulatory system; Z87.891 Personal history of nicotine dependence; Z53.21 Procedure and treatment not carried out due to patient leaving prior to being seen by health care provider
CPT/HCPCS: 36415; 80048; 82040; 83605; 83735; 85025; 87040; 87070; 87075; 87077; 87147; 87186; 87205; 96365; 96366; 96375; J0295; J0690; J2250; J2704; J3010; J3490; Q0162; J2270; J3475

== ENCOUNTER 2017-11-29 09:54 | Emergency (ER) | payer MEDICAID ==
[~2017-11-29] VITALS: Ht 180.3 cm; Wt 73.2 kg
[2017-11-29 09:58] VITALS: BP 129/82
[2017-11-29] MEDS ORDERED: IBUPROFEN 200 MG TABLET ONE (10:49)
[2017-11-29] MEDS ORDERED: HYDROcodone/APAP 5/325 TABLET PO ONE (11:00)
[2017-11-29] MEDS ORDERED: IBUPROFEN 200 MG TABLET PO ONE (11:00)
== END 2017-11-29 11:47 | disposition home or self-care (01) ==
LOC: ED 11:22
DX: S61.412A Laceration without foreign body of left hand, initial encounter (principal); W01.0XXA Fall on same level from slipping, tripping and stumbling without subsequent striking against object, initial encounter; Y93.51 Activity, roller skating (inline) and skateboarding; Y92.410 Unspecified street and highway as the place of occurrence of the external cause; Y99.8 Other external cause status
CPT/HCPCS: 99284

== ENCOUNTER 2018-05-06 20:40 | Emergency (ER) | payer MEDICAID ==
[~2018-05-06] VITALS: Ht 180.3 cm; Wt 71.8 kg
--- NOTE | 2018-05-06 20:40 | NUR ---
BIB [facility] W/ CO SOB/DIFFICULTY BREATHING/ITCH IN THROAT AFTER EATING FISH TONIGHT. PT REPORTS ALLERGY TO FISH. 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 AIRWAY PATENT, PT MANAGING OWN SECRETIONS. SPEAKING IN FULL SENTENCES. SPO2 >90% ON RA. BP/SPO2 MONITORING IN PLACE.
[2018-05-06 20:49] VITALS: BP 133/95
[2018-05-06] MEDS ORDERED: FAMOTIDINE 20 MG TABLET ONE (21:15)
[2018-05-06] MEDS ORDERED: FAMOTIDINE 20 MG TABLET PO ONE (21:30)
--- NOTE | 2018-05-06 21:49 | NUR ---
PT MOSTLY SLEEPY D/T MEDICATIONS. RESPIRATIONS EVEN/UNLABORED. SPO2 >90% ON RA. PT ARROUSABLE TO VOICE AND LIGHT PHYSICAL STIM. CHART UP FOR DC. FAMILY TO KEY ACCOUNT EXECUTIVE PT. PT WILL BE DC'D INTO FAMILY'S CARE UPON THIER ARRIVAL. REPORT TO JOSE FRANCISCO CUELLAR
== END 2018-05-06 22:37 | disposition home or self-care (01) ==
LOC: ED 22:30
DX: T78.1XXA Other adverse food reactions, not elsewhere classified, initial encounter (principal); T78.49XA Other allergy, initial encounter; J98.01 Acute bronchospasm; L50.9 Urticaria, unspecified; X58.XXXA Exposure to other specified factors, initial encounter
CPT/HCPCS: 99283; J7512

== ENCOUNTER 2018-05-31 16:11 | Emergency (ER) | payer MEDICAID ==
[~2018-05-31] VITALS: Ht 180.3 cm; Wt 75.2 kg
[2018-05-31 16:17] VITALS: BP 152/100
[2018-05-31] MEDS ORDERED: LIDOCAINE 1%-EPI 1:100K, 20ML SQ ONE (17:00)
[2018-05-31] MEDS ORDERED: LIDOCAINE 1%-EPI 1:100K, 20ML ONE (17:18)
== END 2018-05-31 18:27 | disposition home or self-care (01) ==
LOC: ED 18:05
DX: S61.412A Laceration without foreign body of left hand, initial encounter (principal); J44.9 Chronic obstructive pulmonary disease, unspecified; F17.200 Nicotine dependence, unspecified, uncomplicated; W45.8XXA Other foreign body or object entering through skin, initial encounter; Y93.89 Activity, other specified; Y99.8 Other external cause status; Y92.009 Unspecified place in unspecified non-institutional (private) residence as the place of occurrence of the external cause
CPT/HCPCS: 12001; 99283

== ENCOUNTER 2018-06-17 19:45 | Emergency (ER) | payer MEDICAID ==
[~2018-06-17] VITALS: Ht 180.3 cm; Wt 67.0 kg
--- NOTE | 2018-06-17 20:05 | NUR ---
PT RESTING COMFORTABLY ON GURNEY, WATER PROVIDED. VSS AND WILL CONT TO MONITOR.
[2018-06-17 22:02] VITALS: BP 123/76
== END 2018-06-17 22:02 | disposition home or self-care (01) ==
LOC: ED 21:01
DX: T78.02XA Anaphylactic reaction due to shellfish (crustaceans), initial encounter (principal); J98.01 Acute bronchospasm; X58.XXXA Exposure to other specified factors, initial encounter
CPT/HCPCS: 99283

== ENCOUNTER 2018-10-07 19:36 | Emergency (ER) | payer MEDICAID ==
[~2018-10-07] VITALS: Ht 172.7 cm; Wt 70.0 kg
--- NOTE | 2018-10-07 19:52 | NUR ---
Pt presents to ed c/o substernal cpx1 hour w/ sob and radiation to abd. C/o Llq abd pain same amount of time. Given 2 doses of nitro and 324 of aspirin w/ relief of pain. Hx of mi in past. Pain reproducable to palpation, deep breathing, and position changes. States relief from nitro dose. All monitoring applied. Vss. Mildly tachy. Md aware. Pt to imaging at this time.
[2018-10-07] MEDS ORDERED: LEVE500T53 PO (19:55)
[2018-10-07] MEDS ORDERED: SODIUM CHLORIDE FLUSH 10ML SYR IVF ONE (20:00)
[2018-10-07 20:12] LABS: BASOPHILS # (AUTO) 0.05 x10^3/uL (0-0.1); BASOPHILS % (AUTO) 1 % (0-1); EOSINOPHILS # (AUTO) 0.12 x10^3/uL (0-0.4); EOSINOPHILS % (AUTO) 1 % (1-7); LYMPHOCYTES # (AUTO) 1.54 x10^3/uL (1-3.4); LYMPHOCYTES % (AUTO) 18 % (22-44); MD NO; MEAN CORPUSCULAR HEMOGLOBIN 30.1 pg (27.5-34.5); MEAN CORPUSCULAR HGB CONC 32.7 g/dL (33.2-36.2); MEAN CORPUSCULAR VOLUME 92.1 fL (81-97); MEAN PLATELET VOLUME 7.8 fL (7.4-10.4); MONOCYTES # (AUTO) 0.46 x10^3/uL (0.2-0.8); MONOCYTES % (AUTO) 5 % (2-9); NEUTROPHILS % (AUTO) 75 % (42-75); PLATELET COUNT 211 x10^3/uL (130-400); RED CELL DISTRIBUTION WIDTH 14.2 % (9.4-14.8)
[2018-10-07 20:24] LABS: ANION GAP 5 mmol/L (5-15); CALCIUM 8.6 mg/dL (8.5-10.1); CHLORIDE 106 mmol/L (98-107); CREATININE 0.85 mg/dL (0.7-1.3)
[2018-10-07 20:25] LABS: ALANINE AMINOTRANSFERASE 40 U/L (12-78); ALBUMIN 3.4 g/dL (3.4-5.0)
[2018-10-07 20:29] LABS: ALKALINE PHOSPHATASE 54 U/L (45-117); BILIRUBIN,TOTAL 0.5 mg/dL (0.2-1.0); TROPONIN I < 0.015 ng/mL (0.000-0.045)
--- NOTE | 2018-10-07 20:43 | NUR ---
Given urinal at this time. No other needs. All results back. Pt up for recheck.
--- NOTE | 2018-10-07 20:43 | NUR ---
Abd ct ordered. Awaiting transport.
--- NOTE | 2018-10-07 20:58 | NUR ---
Back from ct.
--- NOTE | 2018-10-07 21:29 | NUR ---
All results back. Pt up for recheck.
[2018-10-07 21:40] VITALS: BP 143/70
--- NOTE | 2018-10-07 21:40 | NUR ---
at bedside for recheck.
== END 2018-10-07 22:00 | disposition home or self-care (01) ==
LOC: ED 20:06
DX: R07.89 Other chest pain (principal); R10.84 Generalized abdominal pain; I25.2 Old myocardial infarction; J44.9 Chronic obstructive pulmonary disease, unspecified; F17.200 Nicotine dependence, unspecified, uncomplicated; Z72.9 Problem related to lifestyle, unspecified
CPT/HCPCS: 36415; 74022; 74176; 80053; 83690; 84484; 85025; 93005; 99284

== ENCOUNTER 2018-10-15 05:17 | Inpatient (IN) | payer MEDICAID ==
[~2018-10-15] VITALS: Ht 180.3 cm; Wt 81.3 kg
[~2018-10-15 05:17] MED LIST changes: +LEVE500T53 PO
[2018-10-15 06:09] LABS: BASOPHILS # (AUTO) 0.04 x10^3/uL (0-0.1); BASOPHILS % (AUTO) 0 % (0-1); EOSINOPHILS # (AUTO) 0.03 x10^3/uL (0-0.4); EOSINOPHILS % (AUTO) 0 % (1-7); LYMPHOCYTES % (AUTO) 11 % (22-44); MD NO; MEAN CORPUSCULAR HEMOGLOBIN 30.3 pg (27.5-34.5); MEAN CORPUSCULAR HGB CONC 33.6 g/dL (33.2-36.2); MEAN CORPUSCULAR VOLUME 90.3 fL (81-97); MEAN PLATELET VOLUME 8.1 fL (7.4-10.4); MONOCYTES # (AUTO) 0.93 x10^3/uL (0.2-0.8); MONOCYTES % (AUTO) 6 % (2-9); NEUTROPHILS # (AUTO) 12.48 x10^3/uL (1.8-6.8); NEUTROPHILS % (AUTO) 83 % (42-75); PLATELET COUNT 217 x10^3/uL (130-400); RED BLOOD COUNT 4.55 x10^6/uL (4.38-5.82); RED CELL DISTRIBUTION WIDTH 13.9 % (9.4-14.8)
[2018-10-15 06:16] LABS: ANION GAP 6 mmol/L (5-15); CALCIUM 8.8 mg/dL (8.5-10.1); CHLORIDE 106 mmol/L (98-107); CREATININE 0.93 mg/dL (0.7-1.3)
[2018-10-15] MEDS ORDERED: AMPICILLIN/SULBACTAM 3 GM in SODIUM CHLORIDE 0.9% 100 ML IV ONE (06:30)
[2018-10-15] MEDS ORDERED: VANCOMYCIN PER PHARMACY MC PRN (06:30)
--- NOTE | 2018-10-15 06:58 | NUR ---
REPORT RECIEVED FROM JOSEPHINE. PT RESTING IN BED. NADN. [place]. CALL LIGHT IN REACH.
[2018-10-15] MEDS ORDERED: VANCOMYCIN 1,400 MG in SODIUM CHLORIDE 0.9% 250 ML IV ONE (07:00)
--- NOTE | 2018-10-15 08:18 | NUR ---
REPORT GIVEN TO JOSE FRANCISCO STOVER.
--- NOTE | 2018-10-15 08:28 | NUR ---
ASSUMED CARE OF PT WHILE PRIMARY RN ON BREAK. VANCOMYCIN HUNG. UNABLE TO SCAN. PT THEN TAKEN UP TO FLOOR.
[2018-10-15 08:46] VITALS: BP 122/82
[2018-10-15] MEDS: NICOTINE 14MG/24 HR PATCH.TD24 TD SCH (09:34)
[2018-10-15] MEDS: LEVETIRACETAM 500 MG TABLET PO SCH ×2 (09:35→21:06)
[2018-10-15] MEDS: HEPARIN 5,000 UNITS/ML, 1ML SQ SCH ×2 (09:35→17:13)
[2018-10-15] MEDS: SODIUM CHLORIDE 0.9% 1,000 ML IV SCH ×2 (09:46→21:06)
[2018-10-15] MEDS: KETOROLAC 30 MG/1 ML IV PRN ×3 (09:46→17:13)
[2018-10-15 14:42] VITALS: BP 132/78
[2018-10-15] MEDS ORDERED: GADOBUTROL 7.5 MMOL/7.5 ML PFS ONE (16:39)
[2018-10-15] MEDS: AMPICILLIN/SULBACTAM 3 GM in SODIUM CHLORIDE 0.9% 100 ML IV SCH (16:53)
[2018-10-15] MEDS: OXYcodone IR 5MG TABLET PO PRN (19:50)
[2018-10-15 21:41] VITALS: BP 146/82
[2018-10-16] MEDS: HEPARIN 5,000 UNITS/ML, 1ML SQ SCH ×3 (00:59→17:29)
[2018-10-16] MEDS: AMPICILLIN/SULBACTAM 3 GM in SODIUM CHLORIDE 0.9% 100 ML IV SCH ×3 (00:59→17:29)
[2018-10-16] MEDS: OXYcodone IR 5MG TABLET PO PRN ×4 (01:05→21:59)
[2018-10-16] MEDS: SODIUM CHLORIDE 0.9% 1,000 ML IV SCH ×4 (02:40→21:59)
[2018-10-16 03:20] VITALS: BP 133/82
[2018-10-16] MEDS ORDERED: VANCOMYCIN PMX 1GM/200ML 200 ML IV ONE (04:30)
[2018-10-16 07:12] VITALS: BP 150/88
[2018-10-16] MEDS: NICOTINE 14MG/24 HR PATCH.TD24 TD SCH (08:50)
[2018-10-16] MEDS: LEVETIRACETAM 500 MG TABLET PO SCH ×2 (08:50→20:38)
[2018-10-16 08:54] LABS: BASOPHILS # (AUTO) 0.04 x10^3/uL (0-0.1); BASOPHILS % (AUTO) 0 % (0-1); EOSINOPHILS # (AUTO) 0.08 x10^3/uL (0-0.4); EOSINOPHILS % (AUTO) 1 % (1-7); LYMPHOCYTES # (AUTO) 1.53 x10^3/uL (1-3.4); LYMPHOCYTES % (AUTO) 18 % (22-44); MD NO; MEAN CORPUSCULAR HEMOGLOBIN 29.7 pg (27.5-34.5); MEAN CORPUSCULAR HGB CONC 32.9 g/dL (33.2-36.2); MEAN CORPUSCULAR VOLUME 90.2 fL (81-97); MONOCYTES # (AUTO) 0.71 x10^3/uL (0.2-0.8); MONOCYTES % (AUTO) 8 % (2-9); NEUTROPHILS # (AUTO) 6.12 x10^3/uL (1.8-6.8); NEUTROPHILS % (AUTO) 72 % (42-75); PLATELET COUNT 169 x10^3/uL (130-400); RED BLOOD COUNT 4.59 x10^6/uL (4.38-5.82); RED CELL DISTRIBUTION WIDTH 14.2 % (9.4-14.8)
[2018-10-16] MEDS ORDERED: VANCOMYCIN IV ONE (09:00)
[2018-10-16] MEDS ORDERED: VANCOMYCIN PER PHARMACY MC PRN (09:00)
[2018-10-16 09:01] LABS: ALANINE AMINOTRANSFERASE 25 U/L (12-78); ALBUMIN 2.5 g/dL (3.4-5.0); ANION GAP 8 mmol/L (5-15); CALCIUM 7.9 mg/dL (8.5-10.1); CHLORIDE 107 mmol/L (98-107); CREATININE 0.65 mg/dL (0.7-1.3)
[2018-10-16 09:03] LABS: ALKALINE PHOSPHATASE 46 U/L (45-117); BILIRUBIN,TOTAL 0.4 mg/dL (0.2-1.0)
[2018-10-16] MEDS ORDERED: PHARMACOKINETIC CONSULTATION MC ONE (09:30)
[2018-10-16] MEDS ORDERED: PHARMACOKINETIC MONITORING MC PRN (09:30)
[2018-10-16 13:41] VITALS: BP 129/73
[2018-10-16] MEDS: VANCOMYCIN 1,500 MG in SODIUM CHLORIDE 0.9% 250 ML IV SCH (13:50)
[2018-10-16 20:03] VITALS: BP 156/83
[2018-10-16] MEDS: KETOROLAC 30 MG/1 ML IV PRN (21:59)
[2018-10-17] MEDS: AMPICILLIN/SULBACTAM 3 GM in SODIUM CHLORIDE 0.9% 100 ML IV SCH ×2 (01:00→09:41)
[2018-10-17] MEDS: HEPARIN 5,000 UNITS/ML, 1ML SQ SCH ×2 (01:01→09:41)
[2018-10-17] MEDS: VANCOMYCIN 1,500 MG in SODIUM CHLORIDE 0.9% 250 ML IV SCH (01:44)
[2018-10-17 01:45] VITALS: BP 122/82
[2018-10-17 05:37] LABS: BASOPHILS # (AUTO) 0.04 x10^3/uL (0-0.1); BASOPHILS % (AUTO) 1 % (0-1); EOSINOPHILS # (AUTO) 0.13 x10^3/uL (0-0.4); EOSINOPHILS % (AUTO) 2 % (1-7); LYMPHOCYTES # (AUTO) 1.97 x10^3/uL (1-3.4); LYMPHOCYTES % (AUTO) 30 % (22-44); MD NO; MEAN CORPUSCULAR HEMOGLOBIN 30.4 pg (27.5-34.5); MEAN CORPUSCULAR HGB CONC 33.2 g/dL (33.2-36.2); MEAN CORPUSCULAR VOLUME 91.7 fL (81-97); MEAN PLATELET VOLUME 8.4 fL (7.4-10.4); MONOCYTES # (AUTO) 0.67 x10^3/uL (0.2-0.8); MONOCYTES % (AUTO) 10 % (2-9); NEUTROPHILS # (AUTO) 3.83 x10^3/uL (1.8-6.8); NEUTROPHILS % (AUTO) 58 % (42-75); PLATELET COUNT 199 x10^3/uL (130-400); RED BLOOD COUNT 4.33 x10^6/uL (4.38-5.82); RED CELL DISTRIBUTION WIDTH 13.6 % (9.4-14.8)
[2018-10-17] MEDS: OXYcodone IR 5MG TABLET PO PRN (06:33)
[2018-10-17] MEDS: SODIUM CHLORIDE 0.9% 1,000 ML IV SCH (06:33)
[2018-10-17 06:38] VITALS: BP 135/86
[2018-10-17 08:31] LABS: CHLORIDE 108 mmol/L (98-107)
[2018-10-17 08:32] LABS: ALANINE AMINOTRANSFERASE 29 U/L (12-78); ALBUMIN 2.5 g/dL (3.4-5.0); ANION GAP 2 mmol/L (5-15); CALCIUM 8.3 mg/dL (8.5-10.1); CREATININE 0.66 mg/dL (0.7-1.3)
[2018-10-17 08:34] LABS: ALKALINE PHOSPHATASE 49 U/L (45-117); BILIRUBIN,TOTAL 0.2 mg/dL (0.2-1.0); TOTAL PROTEIN 6.3 g/dL (6.4-8.2)
[2018-10-17] MEDS: LEVETIRACETAM 500 MG TABLET PO SCH (09:41)
[2018-10-17] MEDS: NICOTINE 14MG/24 HR PATCH.TD24 TD SCH (09:41)
[2018-10-17] MEDS ORDERED: CEFAZOLIN 2,000 MG in SODIUM CHLORIDE 0.9% 50 ML IV SCH (12:00)
== END 2018-10-17 12:05 | disposition left against medical advice (07) | DRG 872 ==
LOC: ED 05:39 → EDIP 07:43 → 4NOR 08:28
PROVIDERS: ADMIT Internal Medicine; ATTEND Internal Medicine
PROC: 2W38X1Z Immobilization of Right Upper Extremity using Splint (ICD-10-PCS; principal; 2018-10-15)
DX: A41.01 Sepsis due to Methicillin susceptible Staphylococcus aureus (principal); L03.113 Cellulitis of right upper limb; B96.89 Other specified bacterial agents as the cause of diseases classified elsewhere; F15.10 Other stimulant abuse, uncomplicated; F17.210 Nicotine dependence, cigarettes, uncomplicated; J44.9 Chronic obstructive pulmonary disease, unspecified; Z59.0 Homelessness; Z82.49 Family history of ischemic heart disease and other diseases of the circulatory system; Z83.3 Family history of diabetes mellitus; Z53.21 Procedure and treatment not carried out due to patient leaving prior to being seen by health care provider; Z91.030 Bee allergy status; Z91.013 Allergy to seafood
CPT/HCPCS: 29125; 36415; 80048; 80053; 83605; 83735; 84145; 85025; 85651; 86140; 87040; 87077; 87147; 87186; 96374; A9585; G0378; J0295; J1644; J1885; J3370; J7030; J7050

== ENCOUNTER 2018-11-09 14:04 | Emergency (ER) | payer MEDICAID ==
[~2018-11-09] VITALS: Ht 180.3 cm; Wt 72.7 kg
--- NOTE | 2018-11-09 14:17 | NUR ---
PT BIB [facility] AFTER HIS MOTHER WITNESSED 2 SEIZURES. PT STATES HE HAS HAD SEIZURES IN THE PAST AND LAST TOOK HIS [place] LAST NIGHT BUT DOES NOT HAVE ANY AT THIS TIME IT IS IN HIS TRUCK WHICH WAS TOWED. PT HAS DRESSING OVER RIGHT WRIST FROM [place] THAT WAS REMOVED TODAY THAT WAS PLACED FOR BROKEN RIGHT WRIST. 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 NADN. VSS. CALL LIGHT IN REACH.
[2018-11-09 14:19] VITALS: BP 132/78
[2018-11-09] MEDS ORDERED: LEVETIRACETAM 1,000 MG in SODIUM CHLORIDE 0.9% 100 ML IV ONE (14:30)
--- NOTE | 2018-11-09 14:50 | NUR ---
PT MEDICATED PER [facility]. RESTING ON GURNEY. VSS. NADN.
--- NOTE | 2018-11-09 15:10 | NUR ---
BRIDGETT GIVEN. PT TO BE D/C'D.
== END 2018-11-09 15:17 | disposition home or self-care (01) ==
LOC: ED 14:50
DX: R56.9 Unspecified convulsions (principal); F17.200 Nicotine dependence, unspecified, uncomplicated; J44.9 Chronic obstructive pulmonary disease, unspecified; I25.2 Old myocardial infarction
CPT/HCPCS: 96365; 99283; J1953

== ENCOUNTER 2019-02-15 11:10 | Emergency (ER) | payer MEDICAID, OTHER ==
[~2019-02-15] VITALS: Ht 180.3 cm; Wt 70.0 kg
[2019-02-15 11:56] LABS: BASOPHILS # (AUTO) 0.03 x10^3/uL (0-0.1); BASOPHILS % (AUTO) 0 % (0-1); EOSINOPHILS # (AUTO) 0.06 x10^3/uL (0-0.4); EOSINOPHILS % (AUTO) 1 % (1-7); LYMPHOCYTES # (AUTO) 1.55 x10^3/uL (1-3.4); LYMPHOCYTES % (AUTO) 25 % (22-44); MD NO; MEAN CORPUSCULAR HEMOGLOBIN 28.3 pg (27.5-34.5); MEAN CORPUSCULAR HGB CONC 32.3 g/dL (33.2-36.2); MEAN CORPUSCULAR VOLUME 87.7 fL (81-97); MEAN PLATELET VOLUME 7.2 fL (7.4-10.4); MONOCYTES # (AUTO) 0.34 x10^3/uL (0.2-0.8); MONOCYTES % (AUTO) 5 % (2-9); NEUTROPHILS # (AUTO) 4.32 x10^3/uL (1.8-6.8); NEUTROPHILS % (AUTO) 69 % (42-75); PLATELET COUNT 271 x10^3/uL (130-400); RED BLOOD COUNT 5.41 x10^6/uL (4.38-5.82); RED CELL DISTRIBUTION WIDTH 14.8 % (9.4-14.8)
[2019-02-15] MEDS ORDERED: SODIUM CHLORIDE FLUSH 10ML SYR IVF ONE (12:00)
[2019-02-15 12:02] LABS: ALBUMIN 3.3 g/dL (3.4-5.0); ANION GAP 3 mmol/L (5-15); CALCIUM 8.9 mg/dL (8.5-10.1); CHLORIDE 104 mmol/L (98-107)
[2019-02-15 12:05] LABS: ALANINE AMINOTRANSFERASE 71 U/L (12-78); ALKALINE PHOSPHATASE 48 U/L (45-117); BILIRUBIN,TOTAL 0.4 mg/dL (0.2-1.0); CREATININE 0.91 mg/dL (0.7-1.3); TOTAL PROTEIN 7.1 g/dL (6.4-8.2)
--- NOTE | 2019-02-15 12:19 | NUR ---
PT LESS DROWSY, MAKING EYE CONTACT. NO COMPLAINTS AT THIS TIME AND WANTING TO WATCH TV.
[2019-02-15 13:32] VITALS: BP 126/84
== END 2019-02-15 13:34 | disposition home or self-care (01) ==
LOC: ED 12:18
DX: G40.909 Epilepsy, unspecified, not intractable, without status epilepticus (principal); F17.200 Nicotine dependence, unspecified, uncomplicated; J44.9 Chronic obstructive pulmonary disease, unspecified; Z72.9 Problem related to lifestyle, unspecified; I25.2 Old myocardial infarction
CPT/HCPCS: 36415; 70450; 80053; 80177; 85025; 93005; 99284

== ENCOUNTER 2019-06-22 11:21 | Emergency (ER) | payer MEDICAID, OTHER ==
[~2019-06-22] VITALS: Ht 180.3 cm; Wt 74.7 kg
[2019-06-22 11:22] VITALS: BP 135/95
[2019-06-22] MEDS ORDERED: IBUPROFEN 600 MG TABLET ONE (11:45)
--- NOTE | 2019-06-22 11:45 | NUR ---
THIS IS A 43 YO M W/ C/O PAIN W/URINATION AND DISCHARGE X3 DAYS. REPORTS BILAT LOW BACK PAIN 11/02. PT RESTING ON GURNEY AWAITING ED PROVIDER NATALIIA. CALL LIGHT IN REACH. DENIES FURTHER NEEDS AT THIS TIME.
--- NOTE | 2019-06-22 11:47 | NUR ---
PT MEDICATED PER VERBAL ORDER FOR 600 MG IBUPROFEN.
[2019-06-22] MEDS ORDERED: AZITHROMYCIN 500 MG TABLET PO ONE (12:00)
[2019-06-22] MEDS ORDERED: IBUPROFEN 200 MG TABLET PO ONE (12:00)
[2019-06-22] MEDS ORDERED: CEFTRIAXONE 250 MG IM ONE (12:00)
[2019-06-22] MEDS ORDERED: CEFTRIAXONE 250 MG ONE (12:08)
[2019-06-22] MEDS ORDERED: AZITHROMYCIN 250 MG TABLET ONE (12:08)
[2019-06-22] MEDS ORDERED: LIDOCAINE-MPF 1%, 2ML ONE (12:09)
[2019-06-22 12:13] LABS: MICROSCOPIC INDICATED
--- NOTE | 2019-06-22 13:30 | NUR ---
TASK RN: Patient/Caregiver given discharge instructions and they have confirmed that they understand the instructions. Patient ambulatory with steady gait.
== END 2019-06-22 14:05 | disposition home or self-care (01) ==
LOC: ED 13:39
DX: A64 Unspecified sexually transmitted disease (principal); N34.2 Other urethritis; F17.200 Nicotine dependence, unspecified, uncomplicated; J44.9 Chronic obstructive pulmonary disease, unspecified; I25.2 Old myocardial infarction
CPT/HCPCS: 36415; 81001; 86592; 87491; 87591; 96372; 99283; J0696

== ENCOUNTER 2019-08-06 02:43 | Emergency (ER) | payer MEDICAID ==
[~2019-08-06] VITALS: Ht 180.3 cm; Wt 74.5 kg
[2019-08-06] MEDS ORDERED: CEFTRIAXONE 250 MG ONE (03:29)
[2019-08-06] MEDS ORDERED: CEFTRIAXONE 1,000 MG IM ONE (03:30)
[2019-08-06] MEDS ORDERED: LIDOCAINE-MPF 1%, 2ML ONE (03:30)
[2019-08-06] MEDS ORDERED: DOXYCYCLINE 100MG TABLET PO ONE (03:30)
[2019-08-06] MEDS ORDERED: DOXYCYCLINE 100MG TABLET ONE (03:31)
[2019-08-06 03:32] LABS: MICROSCOPIC INDICATED
[2019-08-06 03:53] VITALS: BP 149/109
== END 2019-08-06 03:56 | disposition home or self-care (01) ==
LOC: ED 03:16
DX: N34.1 Nonspecific urethritis (principal); F17.200 Nicotine dependence, unspecified, uncomplicated; I25.2 Old myocardial infarction; J44.9 Chronic obstructive pulmonary disease, unspecified
CPT/HCPCS: 81001; 87491; 87591; 96372; 99283; J0696

== ENCOUNTER 2019-08-13 22:34 | Emergency (ER) | payer MEDICAID ==
[~2019-08-13] VITALS: Ht 180.3 cm; Wt 76.0 kg
[2019-08-13 22:37] VITALS: BP 157/97
[2019-08-13] MEDS ORDERED: PROPARACAINE OPHTH 0.5%, 15ML ONE (22:42)
[2019-08-13] MEDS ORDERED: FLUORESCEIN OPHTHALMIC 1 MG STRIP ONE (22:42)
[2019-08-13] MEDS ORDERED: OFLOXACIN OPHTH 0.3%, 5ML LEFTEYE SCH (23:00)
--- NOTE | 2019-08-13 23:15 | NUR ---
Pt here for conjuctivits to both eyes. reports crusty like drainage for 3 days and difficult to see.
--- NOTE | 2019-08-13 23:18 | NUR ---
Patient/Caregiver given discharge instructions and they have confirmed that they understand the instructions. Patient ambulatory with steady gait.
== END 2019-08-13 23:20 | disposition home or self-care (01) ==
LOC: ED 23:11
DX: H10.022 Other mucopurulent conjunctivitis, left eye (principal); J44.9 Chronic obstructive pulmonary disease, unspecified; I25.2 Old myocardial infarction; G40.909 Epilepsy, unspecified, not intractable, without status epilepticus; F17.200 Nicotine dependence, unspecified, uncomplicated; Z98.890 Other specified postprocedural states
CPT/HCPCS: 99283

== ENCOUNTER 2019-08-18 15:47 | Emergency (ER) | payer MEDICAID ==
[~2019-08-18] VITALS: Ht 180.3 cm; Wt 74.2 kg
--- NOTE | 2019-08-18 17:13 | NUR ---
PT TO ROOM FROM LOBBY AT THIS TIME.
--- NOTE | 2019-08-18 17:14 | NUR ---
PT REPORTS PAINFUL URINATION AND DISCHARGE. DR ANDERSON IN ROOM WITH PATIENT. VS STABLE. CALL LIGHT IN PLACE. WILL CONTINUE TO MONITOR.
[2019-08-18] MEDS ORDERED: CEFTRIAXONE 1,000 MG IM ONE (17:30)
[2019-08-18] MEDS ORDERED: AZITHROMYCIN 500 MG TABLET PO ONE (17:30)
[2019-08-18] MEDS ORDERED: CEFTRIAXONE 250 MG ONE (17:30)
[2019-08-18] MEDS ORDERED: AZITHROMYCIN 500 MG TABLET ONE (17:30)
--- NOTE | 2019-08-18 17:37 | NUR ---
PT ON CELL PHONE IN ROOM. NO ACUTE DISTRESS NOTED. ALEXSI CONTINUE TO MONITOR.
[2019-08-18 18:02] LABS: MICROSCOPIC INDICATED
[2019-08-18 18:03] LABS: CULTURE INDICATED? YES
[2019-08-18 18:23] VITALS: BP 148/95
--- NOTE | 2019-08-18 18:30 | NUR ---
DR ANDERSON IN ROOM UPDATING PATIENT
[2019-08-18] MEDS ORDERED: metroNIDAZOLE 500 MG TABLET ONE (18:41)
--- NOTE | 2019-08-18 18:52 | NUR ---
REPORT GIVEN TO JOSE FRANCISCO ALARCON
--- NOTE | 2019-08-18 18:58 | NUR ---
Patient given discharge instructions and they have confirmed that they understand the instructions. Patient ambulatory with steady gait.
[2019-08-18] MEDS ORDERED: metroNIDAZOLE 500 MG TABLET PO ONE (19:00)
== END 2019-08-18 18:59 | disposition home or self-care (01) ==
LOC: ED 18:10
DX: A54.01 Gonococcal cystitis and urethritis, unspecified (principal); R30.0 Dysuria; J44.9 Chronic obstructive pulmonary disease, unspecified; I25.2 Old myocardial infarction
CPT/HCPCS: 81001; 87086; 87491; 87591; 96372; 99283; J0696

== ENCOUNTER 2020-02-07 22:39 | Emergency (ER) | payer MEDICAID ==
[~2020-02-07] VITALS: Ht 180.3 cm; Wt 71.2 kg
--- NOTE | 2020-02-07 23:20 | NUR ---
PT SITTING IN BED, BEDRAILS UP, SZ PADS IN PLACE, CALL LIGHT IN REACH. NADN. WILL CONTINUE TO MONITOR.
[2020-02-07 23:24] LABS: ALBUMIN 3.5 g/dL (3.4-5.0); ANION GAP 2 mmol/L (5-15); CALCIUM 8.5 mg/dL (8.5-10.1); CHLORIDE 105 mmol/L (98-107)
[2020-02-07 23:28] LABS: BASOPHILS % (AUTO) 1 % (0-1); EOSINOPHILS % (AUTO) 1 % (1-7); LYMPHOCYTES % (AUTO) 20 % (22-44); MEAN CORPUSCULAR HEMOGLOBIN 28.9 pg (27.5-34.5); MEAN CORPUSCULAR HGB CONC 32.6 g/dL (33.2-36.2); MEAN PLATELET VOLUME 7.8 fL (7.4-10.4); MONOCYTES % (AUTO) 8 % (2-9); NEUTROPHILS % (AUTO) 71 % (42-75); PLATELET COUNT 264 x10^3/uL (130-400); RED BLOOD COUNT 4.96 x10^6/uL (4.38-5.82); RED CELL DISTRIBUTION WIDTH 13.8 % (9.4-14.8)
[2020-02-07 23:35] LABS: MD NO
[2020-02-08] MEDS ORDERED: LEVETIRACETAM 500 MG TABLET PO ONE
[2020-02-08] MEDS ORDERED: LEVETIRACETAM 500 MG TABLET ONE (00:04)
[2020-02-08 00:08] VITALS: BP 142/93
--- NOTE | 2020-02-08 00:10 | NUR ---
PT AMBULATORY TO BATHROOM, STEADY GAIT.
[2020-02-08] MEDS ORDERED: NEOSPORIN OINT. PKT 1 PACKET ONE (00:14)
== END 2020-02-08 01:00 | disposition home or self-care (01) ==
LOC: ED 23:21
DX: G40.409 Other generalized epilepsy and epileptic syndromes, not intractable, without status epilepticus (principal); L03.113 Cellulitis of right upper limb; L03.114 Cellulitis of left upper limb; L03.116 Cellulitis of left lower limb; R00.0 Tachycardia, unspecified; Z76.0 Encounter for issue of repeat prescription
CPT/HCPCS: 36415; 80048; 82040; 85025; 93005; 99284

== ENCOUNTER 2020-04-13 13:06 | Emergency (ER) | payer MEDICAID ==
[~2020-04-13] VITALS: Ht 180.3 cm; Wt 74.0 kg
[~2020-04-13 13:06] MED LIST changes: -NICO-487 TD; +NICO-587 TD
[2020-04-13] MEDS ORDERED: DEXAMETHASONE 4 MG TABLET ONE (13:31)
[2020-04-13] MEDS ORDERED: FAMOTIDINE 20 MG TABLET ONE (13:32)
[2020-04-13] MEDS ORDERED: hydrOXyzine 50MG TABLET ONE (13:32)
[2020-04-13] MEDS ORDERED: DEXAMETHASONE 4 MG TABLET PO ONE (14:00)
[2020-04-13] MEDS ORDERED: FAMOTIDINE 20 MG TABLET PO ONE (14:00)
[2020-04-13] MEDS ORDERED: hydrOXyzine 50MG TABLET PO ONE (14:00)
[2020-04-13 14:16] VITALS: BP 134/78
== END 2020-04-13 14:18 | disposition home or self-care (01) ==
LOC: ED 13:37
DX: T78.03XA Anaphylactic reaction due to other fish, initial encounter (principal); Z76.0 Encounter for issue of repeat prescription; R00.0 Tachycardia, unspecified; F17.210 Nicotine dependence, cigarettes, uncomplicated; J44.9 Chronic obstructive pulmonary disease, unspecified; G40.909 Epilepsy, unspecified, not intractable, without status epilepticus
CPT/HCPCS: 93005; 99284; 99406

== ENCOUNTER 2020-12-03 19:16 | Emergency (ER) | payer MEDICAID ==
[~2020-12-03] VITALS: Ht 177.8 cm; Wt 78.1 kg
[2020-12-03 19:18] VITALS: BP 143/89
--- NOTE | 2020-12-03 20:37 | NUR ---
Patient given discharge instructions and they have confirmed that they understand the instructions. Patient ambulatory with steady gait. NAD, all questions answered appropriately, denies additional needs at this time. No personal belongings left in room after discharge.
== END 2020-12-03 20:38 | disposition home or self-care (01) ==
LOC: ED 20:32
DX: L03.211 Cellulitis of face (principal); J44.9 Chronic obstructive pulmonary disease, unspecified; I25.2 Old myocardial infarction; G40.909 Epilepsy, unspecified, not intractable, without status epilepticus
CPT/HCPCS: 99283